=== PATIENT | male | born 1945 | race Caucasian/White ===

== ENCOUNTER 2018-06-13 12:59 | Emergency (ER) | payer MEDICARE, OTHER ==
[~2018-06-13] VITALS: Ht 177.8 cm; Wt 81.0 kg
[2018-06-13 13:49] LABS: BASOPHILS % (AUTO) 0.3 % (0-1); EOSINOPHILS % (AUTO) 0.1 % (0-6); HEMOGLOBIN 15.1 g/dl (14.0-17.9); LYMPHOCYTES # (AUTO) 0.6 X10'3 (1.1-4.8); LYMPHOCYTES % (AUTO) 4.8 % (21-51); MEAN CORPUSCULAR HEMOGLOBIN 31.3 PG (27.0-31.0); MEAN CORPUSCULAR HGB CONC 35.1 g/dL (33.0-36.5); MEAN CORPUSCULAR VOLUME 89.3 FL (78-98); MEAN PLATELET VOLUME 8.2 FL (7.4-10.4); MONOCYTES # (AUTO) 1.1 X10'3 (0-0.9); MONOCYTES % (AUTO) 8.1 % (2-12); NEUTROPHILS # (AUTO) 11.9 X10'3 (1.8-7.7); NEUTROPHILS % (AUTO) 86.7 % (42-75); PLATELET COUNT 238 X10'3 (140-440); RED BLOOD COUNT 4.81 X10'6 (4.70-6.10); RED CELL DISTRIBUTION WIDTH 14.3 % (11.5-14.5); WHITE BLOOD COUNT 13.7 X10'3 (4.5-11.0)
[2018-06-13 14:11] LABS: ALANINE AMINOTRANSFERASE 24 U/L (12-78); ALBUMIN 3.2 G/DL (3.4-5.0); ALBUMIN/GLOBULIN RATIO 0.8 (1.1-1.5); ALKALINE PHOSPHATASE 109 IU/L (46-116); ANION GAP 5 (8-16); ASPARTATE AMINO TRANSFERASE 17 U/L (10-37); BLOOD UREA NITROGEN 16 MG/DL (7-18); BUN/CREATININE RATIO 10.7 (5.4-32.0); CHLORIDE 102 MMOL/L (99-107); GLUCOSE 115 MG/DL (70-104); POTASSIUM 3.1 MMOL/L (3.5-5.1); SODIUM 137 MMOL/L (135-145); TOTAL CARBON DIOXIDE 29.7 MMOL/L (24-32); TOTAL PROTEIN 7.1 G/DL (6.4-8.2); eGFR 46 ML/MIN
[2018-06-13 14:19] LABS: PROTHROMBIN TIME 10.7 SECONDS (9.0-12.0)
[2018-06-13 14:20] LABS: INR 1.1 INR; PARTIAL THROMBOPLASTIN TIME 28 SECONDS (22-32)
--- NOTE | 2018-06-13 14:23 | NUR ---
pt is resting quietly on gurney, resp even and unlabored
--- NOTE | 2018-06-13 14:24 | NUR ---
Dr Zapata aware of temp and pt unable to give urine sample at this time
--- NOTE | 2018-06-13 14:25 | NUR ---
Dr Zapata gave verbal order for tylenol 650mg PO x1 now, NS 1000ml bolus x1 now IV,
[2018-06-13] MEDS ORDERED: normal saline 1000ml 1,000 ML IV ONE (14:30)
[2018-06-13] MEDS ORDERED: acetaminophen 325mg tablet PO ONE (14:30)
[2018-06-13] MEDS ORDERED: CefTRIAXone/D5W-Rocephin 1gm 50 ML IV ONE (14:35)
[2018-06-13] MEDS ORDERED: azithromycin/NS 500mg/250ml 250 ML IV ONE (14:35)
--- NOTE | 2018-06-13 14:38 | NUR ---
IV to rt AC not working, dc'd with cannula intact, started 20gu to rt forearm on 1st attempt, 1liter NS infusing w/o
--- NOTE | 2018-06-13 14:41 | NUR ---
Dr Zapata at bedside to evaluate pt
[2018-06-13] MEDS ORDERED: ipratropium/albuterol 3ml nebule NEB ONE (14:45)
[2018-06-13] MEDS ORDERED: iohexol 350MG/ML 100ml bottle IV ONE (15:12)
--- NOTE | 2018-06-13 15:16 | NUR ---
pt to CT, RT was here and gave pt breathing tx, pt has been on room air pulse ox 91-92%
[2018-06-13] MEDS ORDERED: LEVO750T21 PO (16:09)
[2018-06-13] MEDS ORDERED: potassium Cl 20 mEq SR tablet PO STA (16:12)
[2018-06-13 17:28] VITALS: BP 128/65
== END 2018-06-13 17:29 | disposition home or self-care (01) ==
LOC: ER 12:59
DX: J18.9 Pneumonia, unspecified organism (principal); E78.00 Pure hypercholesterolemia, unspecified; I10 Essential (primary) hypertension; G89.29 Other chronic pain; F17.200 Nicotine dependence, unspecified, uncomplicated; Z79.899 Other long term (current) drug therapy
CPT/HCPCS: 36415; 71045; 71275; 80053; 83605; 84145; 84484; 85025; 85379; 85610; 85730; 87040; 93005; 94640; 94760; 96365; 96367; 99284; J0456; J0696; J7030; Q9967